=== PATIENT | male | born 1970 | race Caucasian/White ===

== ENCOUNTER 2020-10-06 16:23 | Emergency (ER) | payer MEDICAID ==
[~2020-10-06] VITALS: Ht 167.6 cm; Wt 97.0 kg
[2020-10-06 17:36] LABS: BASOPHILS % (AUTO) 0 % (0-1); EOSINOPHILS % (AUTO) 0 % (1-7); LYMPHOCYTES % (AUTO) 22 % (22-44); MEAN CORPUSCULAR HEMOGLOBIN 31.3 pg (27.5-34.5); MEAN CORPUSCULAR HGB CONC 34.4 g/dL (33.2-36.2); MEAN PLATELET VOLUME 7.5 fL (7.4-10.4); MONOCYTES % (AUTO) 5 % (2-9); NEUTROPHILS % (AUTO) 73 % (42-75); PLATELET COUNT 125 x10^3/uL (130-400); RED BLOOD COUNT 5.09 x10^6/uL (4.38-5.82); RED CELL DISTRIBUTION WIDTH 13.2 % (9.4-14.8)
--- NOTE | 2020-10-06 17:36 | NUR ---
pt to room from lobby, pt reports lack of taste and smell and persistent headache for last few days, occaisional cough. denies sob. pt a&o, resps even and unlabored. all monitors in place, sinus tach rate 90s on [place] with no ectopy. edmd biagi at bedside.
[2020-10-06 17:43] LABS: ANION GAP 6 mmol/L (5-15); CALCIUM 8.6 mg/dL (8.5-10.1); CHLORIDE 103 mmol/L (98-107); CREATININE 1.06 mg/dL (0.7-1.3)
[2020-10-06 18:36] VITALS: BP 114/73
--- NOTE | 2020-10-06 18:36 | NUR ---
pt given dc instructions with return criteria. pt a&o, resps even and unlabored, nadn. sinus tach rate 90s on monitoring manager with no ectopy noted. pt ambulatory to dc desk with steady gait.
== END 2020-10-06 18:39 | disposition home or self-care (01) ==
LOC: ED 18:30
DX: U07.1 COVID-19 (principal); J18.9 Pneumonia, unspecified organism; R51.9 Headache, unspecified; R06.02 Shortness of breath
CPT/HCPCS: 36415; 71045; 80048; 82040; 85025; 99284